=== PATIENT | female | born 1950 | race Caucasian/White ===

== ENCOUNTER 2017-04-04 15:27 | Outpatient (CLI) ==
--- NOTE | 2017-04-04 15:51 | DI ---
EXAM: Lumbar spine three view HISTORY: Low back pain COMPARISON: None FINDINGS: Sacroiliac joints intact. Sacral arcuate intact. Vertebral bodies normal height. No fra cture. No subluxation. Multilevel marginal osteophyte formation. Mild to moderate multilevel inter vertebral disc space narrowing. Multilevel facet arthrosis, greatest in the lower spine IMPERSSION: Chronic discogenic degenerative disease and facet arthrosis.
== END 2017-04-04 15:28 | disposition home or self-care (01) ==
LOC: RAD 15:27
PROVIDERS: ATTEND Family Medicine
DX: M54.5 Low back pain (principal); G89.29 Other chronic pain